=== PATIENT | female | born 1990 | race Caucasian/White ===

== ENCOUNTER 2021-08-27 18:14 | Emergency (ER) | payer OTHER ==
[2021-08-27 19:48] VITALS: BP 116/70; PULSE 105; TEMP 98.2; BMI 21.4
== END 2021-08-27 20:44 | disposition home or self-care (01) ==
LOC: JER 18:14
DX: J06.9 Acute upper respiratory infection, unspecified (principal)
CPT/HCPCS: 87651; 87804; 87807; 99283-25; C9803; U0003; U0005